=== PATIENT | female | born 1960 | race Caucasian/White ===

== ENCOUNTER 2017-06-14 13:51 | Emergency (ER) | payer OTHER ==
[~2017-06-14] VITALS: Ht 160 cm; Wt 43.0 kg
[2017-06-14 13:53] VITALS: BP 128/78; PULSE 119; RESP 18; TEMP 99.3; O2SAT 98
--- NOTE | 2017-06-14 14:16 | PD ---
HPI Chief Complaint: Musculoskeletal Complaint Time Seen by Provider: 14:03 Travel History International Travel<30 days: No Contact w/Intl Traveler<30days: No Traveled to known affect area: No History of Present Illness HPI The patient was seen and examined in the presence of the nurse. This patient complains of pain from a fall. This patient has chronic daily back pain and has had prior low back surgery. She doesn't take any medication and just deals with the pain. She has a chronic left foot drop. She fell yesterday evening and landed on grass. She landed on her right hip. She complains of some pain in the right hip and right groin. Worse when she tries to lift her right leg. Pain is worse with weightbearing. No alleviating factors. Symptoms exacerbated by movement. Duration one day PFSH Past Medical History Blood Disorders: No Cancer: No High Cholesterol: Yes Diminished Hearing: No Endocrine: No Gastrointestinal Disorders: No Genitourinary: No Immune Disorder: No Psychiatric: No Respiratory: No ?: Not Menopausal: Yes Tubal Ligation: Yes Past Surgical History AICD: No Joint Replacement: No Pacemaker: No Social History Alcohol Use: Yes ([employer]) Tobacco Use: No (1 PPD on weekends) Substance Use: No Allergies-Medications (Allergen,Severity, Reaction): Coded Allergies: penicillin G (Unverified Allergy, Severe, 06/14/17) Reported Meds & Prescriptions Reported Meds & Active Scripts Active Percocet (Oxycodone-Acetaminophen) 5-325 mg Tab 1 Tab PO Q6H PRN Review of Systems General / Constitutional: No: Fever Eyes: No: Visual changes HENT: No: Headaches Cardiovascular: No: Chest Pain or Discomfort Respiratory: No: Shortness of Breath Gastrointestinal: No: Abdominal Pain Genitourinary: No: Dysuria Musculoskeletal: Positive: Myalgias, Arthralgias, Limited ROM, Pain Skin: No Rash Neurologic: No: Weakness Psychiatric: No: Depression Endocrine: No: Polydipsia Hematologic/Lymphatic: No: Easy Bruising Physical Exam Narrative GENERAL: Thin pleasant Well-developed patient in no apparent distress. SKIN: Focused skin assessment reveals no rash and nodules. Skin is Warm and dry. HEAD: Atraumatic. Normocephalic. EYES: Pupils equal and round. No scleral icterus. No injection or drainage. ENT: No nasal bleeding or discharge. Mucous membranes pink and moist. NECK: Trachea midline. No JVD. CARDIOVASCULAR: Regular rate and rhythm. No murmur appreciated. RESPIRATORY: No accessory muscle use. Clear to auscultation. Breath sounds equal bilaterally. GASTROINTESTINAL: Abdomen soft, non-tender, nondistended. Hepatic and splenic margins not palpable. MUSCULOSKELETAL: No obvious deformities. No clubbing. No cyanosis. No edema. Good range of motion of both hips. No midline tenderness of the back. No bruising or deformity. NEUROLOGICAL: Awake and alert. No obvious cranial nerve deficits. Motor grossly within normal limits. Normal speech. PSYCHIATRIC: Appropriate mood and affect; insight and judgment normal. Data Data Last Documented VS Vital Signs Date Time Temp Pulse Resp B/P (MAP) Pulse Ox O2 Delivery O2 Flow Rate FiO2 06/14/17 16:03 90 18 157/67 (97) 97 Room Air 06/14/17 13:53 99.3 Orders Orders Pelvis, Ap Only (Routine) (06/14/17 ) Iv Access Insert/Monitor (06/14/17 14:45) Complete Blood Count With Diff (06/14/17 14:45) Basic Metabolic Panel (Bmp) (06/14/17 14:45) Ct Pelvis W/O Iv Contrast (06/14/17 15:09) Labs Laboratory Tests Test 06/14/17 15:05 White Blood Count 8.4 TH/MM3 Red Blood Count 4.96 MIL/MM3 Hemoglobin 14.3 GM/DL Hematocrit 42.5 % Mean Corpuscular Volume 85.7 FL Mean Corpuscular Hemoglobin 28.7 PG Mean Corpuscular Hemoglobin Concent 33.5 % Red Cell Distribution Width 16.4 % Platelet Count 186 TH/MM3 Mean Platelet Volume 7.3 FL Neutrophils (%) (Auto) 75.6 % Lymphocytes (%) (Auto) 9.4 % Monocytes (%) (Auto) 10.9 % Eosinophils (%) (Auto) 0.2 % Basophils (%) (Auto) 3.9 % Neutrophils # (Auto) 6.4 TH/MM3 Lymphocytes # (Auto) 0.8 TH/MM3 Monocytes # (Auto) 0.9 TH/MM3 Eosinophils # (Auto) 0.0 TH/MM3 Basophils # (Auto) 0.3 TH/MM3 CBC Comment DIFF FINAL Differential Comment Blood Urea Nitrogen 7 MG/DL Creatinine 0.55 MG/DL Random Glucose 93 MG/DL Calcium Level 8.9 MG/DL Sodium Level 135 MEQ/L Potassium Level 3.8 MEQ/L Chloride Level 100 MEQ/L Carbon Dioxide Level 25.9 MEQ/L Anion Gap 9 MEQ/L Estimat Glomerular Filtration Rate 114 ML/MIN MDM Medical Decision Making Medical Screen Exam Complete: Yes Emergency Medical Condition: Yes Medical Record Reviewed: Yes Differential Diagnosis Ligament tear, hip fracture, dislocation Narrative Course I have reviewed the patient's electronic medical record. I reviewed her pelvis x-ray which are just the possibility of a buckle type fracture in the inferior right pubic ramus CT scan confirms a pubic ramus fracture with minimal displacement IV was placed CBC normal Metabolic profile normal Case reviewed in detail with orthopedist Dr. Pineda who reviewed the films He recommends weightbearing as tolerated and he will see the patient in the office in follow-up in a week Pain medicine written Patient may need short term wheelchair use and transition to walker as able given her chronic back pain and left foot drop Diagnosis Primary Impression: Closed pelvic fracture Qualified Codes: S32.501A - Unspecified fracture of right pubis, initial encounter for closed fracture Additional Instructions: Call the office of Dr. Pineda for orthopedic follow-up The patient was warned about potential sedation for the medications they will receive on prescription. You are allowed to bear weight as tolerated. Start with wheelchair and then transition to the walker Med/Other Pt SpecificInfo: Prescription(s) given Scripts Oxycodone-Acetaminophen (Percocet) 5-325 mg Tab 1 TAB PO Q6H Y for PAIN, #20 TAB 0 Refills Prov: Torres Wagoner MD 06/14/17 Disposition: 01 DISCHARGE HOME Condition: Stable Torres Wagoner MD Jun 14, 2017 14:16
--- NOTE | 2017-06-14 14:37 | RADRPT ---
EXAM DATE/TIME: 06/14/2017 14:24 [facility] COMPARISON: No previous studies available for comparison. INDICATIONS : Fell last night , has pain right side pelvis MEDICAL HISTORY : None. SURGICAL HISTORY : Spinal surgery ENCOUNTER: Initial ACUITY: 1 day PAIN SCORE: 10/10 LOCATION: Right pelvis FINDINGS: There is possible minimally displaced fracture of the right inferior pubic ramus. The rest of the bon y pelvis appears intact. No fracture or subluxation seen of either hip. CONCLUSION: Possible right inferior pubic ramus fracture. Noncontrast CT of the pelvis is recommended. Nimesh Sanchez MD on June 14, 2017 at 14:33 Board Certified Radiologist. This report was verified electronically.
[2017-06-14 15:17] LABS: AUTOMATED NEUTROPHIL # 6.4 TH/MM3 (1.8-7.7); BASOPHIL # 0.3 TH/MM3 (0-0.2); BASOPHIL % 3.9 % (0.0-2.0); EOSINOPHIL % 0.2 % (0.0-4.0); HEMATOCRIT 42.5 % (35.0-46.0); LYMPH % 9.4 % (9.0-44.0); LYMPHOCYTE # 0.8 TH/MM3 (1.0-4.8); MEAN CELL VOLUME 85.7 FL (80.0-100.0); MEAN CORPUSCULAR HEMOGLOBIN 28.7 PG (27.0-34.0); MEAN CORPUSCULAR HGB CONC 33.5 % (32.0-36.0); MONO % 10.9 % (0.0-8.0); NEUT % 75.6 % (16.0-70.0); PLATELET COUNT 186 TH/MM3 (150-450); RED BLOOD COUNT 4.96 MIL/MM3 (4.00-5.30); RED CELL DISTRIBUTION WIDTH 16.4 % (11.6-17.2); WHITE BLOOD COUNT 8.4 TH/MM3 (4.0-11.0)
[2017-06-14 15:24] LABS: HEMO FLAGS DIFF FINAL
[2017-06-14 15:27] LABS: POTASSIUM 3.8 MEQ/L (3.5-5.1)
[2017-06-14 15:30] LABS: BICARBONATE 25.9 MEQ/L (21.0-32.0)
[2017-06-14 16:03] VITALS: BP 157/67; PULSE 90; RESP 18; O2SAT 97
--- NOTE | 2017-06-14 16:03 | RADRPT ---
EXAM DATE/TIME: 06/14/2017 15:45 [facility] COMPARISON: PELVIS AP ONLY, June 14, 2017, 14:24. INDICATIONS : Fall. right hip pain. Abnormal pelvis xray. ORAL CONTRAST: No oral contrast ingested. RADIATION DOSE: 13.88 CTDIvol (mGy) MEDICAL HISTORY : Hypercholesterolemia. SURGICAL HISTORY : Tubal ligation. Hysterectomy. ENCOUNTER: Initial ACUITY: 2 days PAIN SCALE: 9/10 LOCATION: Right pelvis TECHNIQUE: Volumetric scanning of the pelvis was performed. Using automated exposure control and adjustment of the mA and/or kV according to patient size, radiation dose was kept as low as reasonably achievable t o obtain optimal diagnostic quality images. DICOM format image data is available electronically for review and comparison. FINDINGS: Acute, minimally displaced segmental fracture seen of the right inferior pubic ramus. The rest of the pelvis is intact. No malalignment of the hips, pubic symphysis or sacroiliac joints. No significant hematoma or other acute soft tissue abnormality demonstrated. No free fluid in the pel sarwat cavity. CONCLUSION: 1. Acute, minimally displaced right inferior pubic ramus fracture. 2. Intact hips/proximal femora. Nimesh Sanchez MD on June 14, 2017 at 15:58 Board Certified Radiologist. This report was verified electronically.
[2017-06-14] MEDS ORDERED: PERC5TAB12 PO (16:57)
== END 2017-06-14 17:15 | disposition home or self-care (01) ==
LOC: PHED 13:51
DX: S32.501A Unspecified fracture of right pubis, initial encounter for closed fracture (principal); M21.372 Foot drop, left foot; M54.9 Dorsalgia, unspecified; G89.29 Other chronic pain; E78.00 Pure hypercholesterolemia, unspecified; Z87.39 Personal history of other diseases of the musculoskeletal system and connective tissue; W19.XXXA Unspecified fall, initial encounter
CPT/HCPCS: 72170; 72192; 80048; 85025; 99284

== ENCOUNTER 2017-07-22 11:27 | Emergency (ER) | payer OTHER ==
[~2017-07-22] VITALS: Ht 160 cm; Wt 48.0 kg
[~2017-07-22 11:27] MED LIST: PERC5TAB12 PO
[2017-07-22 11:34] VITALS: BP 173/86; PULSE 111; RESP 16; TEMP 98.1; O2SAT 99
[2017-07-22] MEDS ORDERED: PERM5CRE TOPICAL (12:04)
--- NOTE | 2017-07-22 12:05 | PD ---
HPI Chief Complaint: rash Time Seen by Provider: 11:59 Travel History International Travel<30 days: No Contact w/Intl Traveler<30days: No Traveled to known affect area: No History of Present Illness HPI This 56-year-old female is complaining of a rash all over her body. It is very itchy. She's been having it since around [facility]. She went to [facility]-in [facility] and was diagnosed with contact dermatitis. She was put on steroids which did not seem to help. She is currently just taking Benadryl for itch. She has noted today that her ankles are swollen. She denies taking excessive salts. She has no history of congestive failure. She does have a history of COPD she drinks occasionally PFSH Past Medical History Blood Disorders: No Cancer: No High Cholesterol: Yes Diminished Hearing: No Endocrine: No Gastrointestinal Disorders: No Genitourinary: No Immune Disorder: No Psychiatric: No Reproductive: No Respiratory: Yes (copd) ?: Not Menopausal: Yes Tubal Ligation: Yes Past Surgical History AICD: No Insulin Pump: No Joint Replacement: No Pacemaker: No Social History Alcohol Use: Yes ([employer], states 4-5 daily) Tobacco Use: No (/ ppd) Substance Use: No Allergies-Medications (Allergen,Severity, Reaction): Coded Allergies: penicillin G (Unverified Allergy, Severe, 06/14/17) Reported Meds & Prescriptions Reported Meds & Active Scripts Active Permethrin Topical 5% (Permethrin) 5% Cream 1 Applic TOPICAL ONCE Review of Systems General / Constitutional: No: Fever, Chills Eyes: No: Diploplia HENT: No: Headaches, Vertigo Cardiovascular: Positive: Edema, No: Chest Pain or Discomfort, Palpitations Respiratory: No: Cough, Shortness of Breath Gastrointestinal: No: Nausea, Vomiting Genitourinary: No: Frequency Skin: Positive Rash, Positive Itching Neurologic: No: Weakness, Dizziness Psychiatric: No: Anxiety Hematologic/Lymphatic: No: Easy Bruising Physical Exam Narrative GENERAL: Thin female no acute distress SKIN: Focused skin assessment warm/dry. Head is an erythematous rash which involves the majority of the trunk and extremities. The face has minimal effect. There are areas where there are appear to be scabbed lesions in a row. HEAD: Atraumatic. Normocephalic. EYES: Pupils equal and round. No scleral icterus. No injection or drainage. ENT: No nasal bleeding or discharge. Mucous membranes pink and moist. NECK: Trachea midline. No JVD. CARDIOVASCULAR: Regular rate and rhythm. No murmur appreciated. RESPIRATORY: No accessory muscle use. Clear to auscultation. Breath sounds equal bilaterally. GASTROINTESTINAL: Abdomen soft, non-tender, nondistended. Hepatic and splenic margins not palpable. MUSCULOSKELETAL: No obvious deformities. No clubbing. No cyanosis. There is 1 + ankle edema bilaterally edema. NEUROLOGICAL: Awake and alert. No obvious cranial nerve deficits. Motor grossly within normal limits. Normal speech. PSYCHIATRIC: Appropriate mood and affect; insight and judgment normal. Data Data Last Documented VS Vital Signs Date Time Temp Pulse Resp B/P (MAP) Pulse Ox O2 Delivery O2 Flow Rate FiO2 07/22/17 11:34 98.1 111 16 173/86 (115) 99 Orders Orders Complete Blood Count With Diff (07/22/17 11:59) Comprehensive Metabolic Panel (07/22/17 11:59) Urinalysis - C+S If Indicated (07/22/17 11:59) Labs Laboratory Tests Test 07/22/17 12:32 07/22/17 12:37 Urine Collection Type CLEAN CATCH Urine Color YELLOW Urine Turbidity CLEAR Urine pH 6.0 Urine Specific [place] 1.005 Urine Protein NEG mg/dL Urine Glucose (UA) NEG mg/dL Urine Ketones NEG mg/dL Urine Occult Blood TRACE Urine Nitrite NEG Urine Bilirubin NEG Urine Leukocyte Esterase NEG Urine RBC 0-3 /hpf Urine Squamous Epithelial Cells 0-5 /hpf Microscopic Urinalysis Comment CULT NOT INDICATED Urine Collection Time 12:32 White Blood Count 9.1 TH/MM3 Red Blood Count 4.90 MIL/MM3 Hemoglobin 14.6 GM/DL Hematocrit 44.4 % Mean Corpuscular Volume 90.5 FL Mean Corpuscular Hemoglobin 29.8 PG Mean Corpuscular Hemoglobin Concent 32.9 % Red Cell Distribution Width 15.2 % Platelet Count 239 TH/MM3 Mean Platelet Volume 6.6 FL Neutrophils (%) (Auto) 75.3 % Lymphocytes (%) (Auto) 9.1 % Monocytes (%) (Auto) 7.1 % Eosinophils (%) (Auto) 7.1 % Basophils (%) (Auto) 1.4 % Neutrophils # (Auto) 7.0 TH/MM3 Lymphocytes # (Auto) 0.8 TH/MM3 Monocytes # (Auto) 0.6 TH/MM3 Eosinophils # (Auto) 0.6 TH/MM3 Basophils # (Auto) 0.1 TH/MM3 CBC Comment DIFF FINAL Differential Comment Blood Urea Nitrogen 5 MG/DL Creatinine 0.45 MG/DL Random Glucose 72 MG/DL Total Protein 7.2 GM/DL Albumin 3.2 GM/DL Calcium Level 8.3 MG/DL Alkaline Phosphatase 124 U/L Aspartate Amino Transf (AST/SGOT) 35 U/L Alanine Aminotransferase (ALT/SGPT) 20 U/L Total Bilirubin 0.4 MG/DL Sodium Level 139 MEQ/L Potassium Level 3.7 MEQ/L Chloride Level 103 MEQ/L Carbon Dioxide Level 23.9 MEQ/L Anion Gap 12 MEQ/L Estimat Glomerular Filtration Rate 143 ML/MIN [facility] Medical Decision Making Medical Screen Exam Complete: Yes Emergency Medical Condition: Yes Medical Record Reviewed: Yes Differential Diagnosis Differential includes scabies, dermatitis, hypoalbuminemia, nephrotic syndrome Narrative Course Lab work shows the albumin to be slightly low at 3.2. Remainder of lab work is unremarkable. Patient be treated for scabies and she'll be released. I suspect this edema will be self-limited Diagnosis Primary Impression: Scabies Scripts Permethrin Topical 5% (Permethrin Topical 5%) 5% Cream 1 APPLIC TOPICAL ONCE for Scabies, #1 TUBE 0 Refills Prov: Alonso Lau MD 07/22/17 Disposition: 01 DISCHARGE HOME Condition: Stable Alonso Lau MD Jul 22, 2017 12:05
[2017-07-22 12:42] LABS: GLUCOSE,URINE NEG (NEG); KETONE, URINE NEG (NEG); NITRITE,URINE NEG (NEG)
[2017-07-22 12:44] LABS: BASOPHIL # 0.1 TH/MM3 (0-0.2); BASOPHIL % 1.4 % (0.0-2.0); EOSINOPHIL # 0.6 TH/MM3 (0-0.4); EOSINOPHIL % 7.1 % (0.0-4.0); HEMATOCRIT 44.4 % (35.0-46.0); HEMO FLAGS DIFF FINAL; LYMPH % 9.1 % (9.0-44.0); LYMPHOCYTE # 0.8 TH/MM3 (1.0-4.8); MEAN CELL VOLUME 90.5 FL (80.0-100.0); MEAN CORPUSCULAR HEMOGLOBIN 29.8 PG (27.0-34.0); MEAN CORPUSCULAR HGB CONC 32.9 % (32.0-36.0); MONO % 7.1 % (0.0-8.0); NEUT % 75.3 % (16.0-70.0); PLATELET COUNT 239 TH/MM3 (150-450); RED CELL DISTRIBUTION WIDTH 15.2 % (11.6-17.2); WHITE BLOOD COUNT 9.1 TH/MM3 (4.0-11.0)
[2017-07-22 12:50] LABS: BLOOD, URINE TRACE (NEG)
[2017-07-22 12:52] LABS: COMMENT (UR) CULT NOT INDICATED; CULTURE IF INDICATED CULT NOT INDICATED; METHOD OF COLLECTION CLEAN CATCH; RBC, URINE 0-3 /hpf (0-3); SQUAMOUS EPITHELIAL CELL URINE 0-5 /hpf (0-5); URINE COLOR YELLOW (YELLW/STRAW)
[2017-07-22 12:53] LABS: CHLORIDE 103 MEQ/L (98-107); POTASSIUM 3.7 MEQ/L (3.5-5.1); SODIUM (NA) 139 MEQ/L (136-145)
[2017-07-22 12:56] LABS: ANION GAP 12 MEQ/L (5-15); BICARBONATE 23.9 MEQ/L (21.0-32.0)
[2017-07-22 12:57] LABS: BLOOD UREA NITROGEN 5 MG/DL (7-18)
[2017-07-22 12:59] LABS: ALT (GPT) 20 U/L (10-53); AST (GOT) 35 U/L (15-37)
[2017-07-22 13:00] LABS: GLOMERULAR FILTRATION RATE 143 ML/MIN (>89)
[2017-07-22 13:01] LABS: TOTAL BILIRUBIN ADULT 0.4 MG/DL (0.2-1.0)
[2017-07-22 13:02] LABS: ALKALINE PHOSPHATASE 124 U/L (45-117)
== END 2017-07-22 13:33 | disposition home or self-care (01) ==
LOC: PHED 11:27
DX: B86 Scabies (principal)
CPT/HCPCS: 80053; 81001; 85025; 99283